=== PATIENT | female | born 1955 | race Caucasian/White ===

== ENCOUNTER 2017-08-03 22:45 | Emergency (ER) | payer OTHER ==
[~2017-08-03] VITALS: Ht 152.4 cm; Wt 56.7 kg
[2017-08-03 22:48] VITALS: BP 150/93
--- NOTE | 2017-08-03 22:55 | NUR ---
PT. JOSE TO ED BED 3
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
--- NOTE | 2017-08-04 | NUR ---
Patient being evaluated by DR. PALOMINO at bedside.
--- NOTE | 2017-08-04 00:30 | NUR ---
PT. TAKEN TO CT
--- NOTE | 2017-08-04 00:42 | NUR ---
PT. BACK FROM CT
--- NOTE | 2017-08-04 01:28 | NUR ---
CT NECK NEGATIVE, REMOVE C-COLLAR. PT. NO S/SX OF DISTRESS AT THIS TIME
[2017-08-04 01:35] VITALS: BP 128/78
--- NOTE | 2017-08-04 01:35 | NUR ---
Patient discharged with v/s stable. Written and verbal after care instructions given and explained. Patient alert, oriented and verbalized understanding of instructions. Ambulatory with steady gait. All questions addressed prior to discharge. ID band removed. Patient advised to follow up with PMD. Rx of FLEXERIL 5 MG, MOTRIN 800 MG given. Patient educated on indication of medication including possible reaction and side effects. Opportunity to ask questions provided and answered.
== END 2017-08-04 01:35 | disposition home or self-care (01) ==
LOC: MED 22:45
DX: S13.9XXA Sprain of joints and ligaments of unspecified parts of neck, initial encounter (principal); M25.512 Pain in left shoulder; V49.40XA Driver injured in collision with unspecified motor vehicles in traffic accident, initial encounter; Y93.89 Activity, other specified; Y92.89 Other specified places as the place of occurrence of the external cause; Y99.8 Other external cause status
CPT/HCPCS: 70450; 72125; 99284